=== PATIENT | male | born 1975 | race Two or more races ===

== ENCOUNTER 2019-05-03 15:33 | Emergency (ER) | payer SELFPAY ==
[~2019-05-03] VITALS: Ht 154.9 cm; Wt 89.8 kg
[2019-05-03 15:58] VITALS: BP 108/72
[2019-05-03] MEDS ORDERED: TETANUS-DIPTH-ACEL PERTUSSIS 0.5ML SYRG IM ONE (16:30)
== END 2019-05-03 16:38 | disposition home or self-care (01) ==
LOC: ER 15:41
DX: S61.011A Laceration without foreign body of right thumb without damage to nail, initial encounter (principal); W26.0XXA Contact with knife, initial encounter; Y93.89 Activity, other specified; Y99.8 Other external cause status; Y92.89 Other specified places as the place of occurrence of the external cause
CPT/HCPCS: 12002; 90471; 90715

== ENCOUNTER 2019-05-12 14:22 | Emergency (ER) | payer SELFPAY ==
[~2019-05-12] VITALS: Ht 154.9 cm; Wt 89.8 kg
[2019-05-12 14:33] VITALS: BP 118/81
== END 2019-05-12 15:42 | disposition home or self-care (01) ==
LOC: ER 14:24
DX: S61.011D Laceration without foreign body of right thumb without damage to nail, subsequent encounter (principal); X58.XXXD Exposure to other specified factors, subsequent encounter